=== PATIENT | female | born 1960 | race Caucasian/White ===

== ENCOUNTER → 2016-12-28 | Outpatient (CLI) | payer BC ==
--- NOTE | 2016-12-28 17:50 | US ---
EXAMINATION TYPE: US kidneys/renal and bladder DATE OF EXAM: 12/28/2016 COMPARISON: NONE CLINICAL HISTORY: Pelvic Pain R10.2, Renal Cysts N28.1. History of renal cyst EXAM MEASUREMENTS: Right Kidney: 10.6 x 5.7 x 3.9 cm Left Kidney: 10.9 x 5.0 x 4.5 cm Post Void Residual Volume: 12.9 mL Right Kidney: cystic area mid = 2.5 x 2.5 x 2.5cm Left Kidney: no evidence of hydronephrosis or mass Bladder: wnl Bilateral Jets seen: yes Normal Post Void Residual: yes There is no evidence for hydronephrosis at this point in time. No nephrolithiasis is seen. No william s are identified. The urinary bladder is anechoic. Bilateral ureteral jets are seen. IMPRESSION: There is a 2.5 cm exophytic cortical cyst on the right kidney. No sign of solid renal mass. Satisfact ory bladder emptying.
--- NOTE | 2016-12-28 18:00 | US ---
EXAMINATION TYPE: US pelvis complete transvag DATE OF EXAM: 12/28/2016 COMPARISON: Previous study dated 12/28/2016 CLINICAL HISTORY: Pelvic Pain R10.2, Renal Cysts N28.1. Mid/ left pelvic and perineal pain, partial h ysterectomy 2004 TECHNIQUE: Transvaginal (TV) and Transabdominal (TA) Date of LMP: unknown EXAM MEASUREMENTS: Uterus: Surgically absent Endometrial Stripe: Surgically absent Right Ovary: unable to visualize Left Ovary: unable to visualize 1. Uterus: Surgically absent, vaginal cuff = 0.8cm 2. Endometrium: Surgically absent 3. Right Ovary: unable to visualize 4. Left Ovary: unable to visualize 5. Bilateral Adnexa: complex anechoic area midline/left adnexa = 3.1 x 2.4 x 2.2cm ?etiology IMPRESSION: LESION TALKED ABOUT INVOLVING THE LEFT ADNEXA IS NOT WELL DEMONSTRATED. IN LIGHT OF PATIENT'S SYMPTOM S, A CT SCAN OF THE PELVIS MAY WORTHWHILE OR MRI.
== END | disposition home or self-care (01) ==
LOC: RADUSWWP 16:03
PROVIDERS: ATTEND Family Medicine
DX: N28.1 Cyst of kidney, acquired (principal); N83.8 Other noninflammatory disorders of ovary, fallopian tube and broad ligament
CPT/HCPCS: 76770; 76830; 76856

== ENCOUNTER → 2017-01-22 | Outpatient (CLI) | payer BC ==
[2017-01-22 15:04] LABS: Blood Urea Nitrogen 14 mg/dL (7-17); Non-African American GFR(MDRD) >60 (>60 ml/min/1.73 sqM)
--- NOTE | 2017-01-22 16:24 | CT ---
EXAMINATION TYPE: CT abdomen pelvis w con DATE OF EXAM: 01/22/2017 COMPARISON: NONE prior report from 10/14/2003 is reviewed. INDICATION: Right renal cyst and pelvic pain. DLP: 1632.00 mGycm, Automated exposure control for dose reduction was used. CONTRAST: 100 mL of Omnipaque 300. Study performed with Oral Contrast TECHNIQUE: Axial images were obtained from above the diaphragm to the pubic rami in the axial plane a t 5 mm thick sections. Reconstructed images are reviewed on the computer in the coronal plane. FINDINGS: Limited CT sections are obtained the lung bases. The lung bases are clear. CT ABDOMEN: Liver: There is mild fatty infiltration liver. No discrete masses or cysts are evident. Spleen: Normal Pancreas: Normal Adrenal glands: The adrenal glands are normal. Gallbladder: Surgically absent Kidneys: No masses are evident. No hydronephrosis is present. There is a 1.8 cm mid lateral right r enal cyst measuring 12 Hounsfield units. This was present and stable in size from the reported 2003. Delayed images were obtained through the kidneys, which remain unremarkable. Aorta: Normal . Some vascular calcification is within the aorta mccallum. Inferior vena cava: Normal. CT PELVIS: Loops of bowel within the abdomen and pelvis are normal. There are loops of bowel which are incom pletely distended or lack oral contrast limiting their evaluation. Diverticular changes are through t he sigmoid colon without acute diverticulitis. Appendix: Normal as visualized. Urinary bladder: Normal. Genitourinary structures: 1.4 cm left ovarian cyst is present. Uterus is not identified. Right ovary is not identified. Left ovary could have some residual ovarian tissue present. Osseous structures: No suspicious osseous abnormality is evident. IMPRESSIONS: 1. Residual ovarian tissue in the left adnexa with a 1.4 cm cyst. 2. Right renal cyst. 3. Mild fatty infiltration of the liver
== END | disposition home or self-care (01) ==
LOC: RADCTMAIN 14:21
PROVIDERS: ATTEND Family Medicine
DX: N28.1 Cyst of kidney, acquired (principal); K76.0 Fatty (change of) liver, not elsewhere classified; N83.8 Other noninflammatory disorders of ovary, fallopian tube and broad ligament
CPT/HCPCS: 82565; 84520; 74177; 36415; Q9967

== ENCOUNTER → 2018-12-24 | Outpatient (CLI) | payer BC ==
--- NOTE | 2018-12-24 13:45 | MM ---
Reason for exam: screening (asymptomatic). Last mammogram was performed 2 years and 6 months ago. History: Patient is postmenopausal. Family history of breast cancer in maternal aunt. Physical Findings: A clinical breast exam by your physician is recommended on an annual basis and results should be correlated with mammographic findings. MG Screening Mammo w CAD Bilateral CC and MLO view(s) were taken. Prior study comparison: June 19, 2016, bilateral MG screening mammo w CAD. November 14, 2013, [facility] DIGITAL BILATERAL MAMMOGRAM w/CAD. The breast tissue is heterogeneously dense. This may lower the sensitivity of mammography. No suspicious abnormality. No significant changes when compared with prior studies. ASSESSMENT: Negative, BI-RAD 1 RECOMMENDATION: Routine screening mammogram of both breasts in 1 year.
== END ==
LOC: RADMAMWWP 06:52
PROVIDERS: ATTEND Family Medicine
DX: Z12.31 Encounter for screening mammogram for malignant neoplasm of breast (principal)
CPT/HCPCS: 77067

== ENCOUNTER 2019-01-29 07:33 | Day surgery (SDC) | payer BC ==
[2019-01-28 10:05] VITALS: BMI 33.7
[~2019-01-29 07:33] MED LIST: LACTATED RINGERS 1,000 ML IV SCH; LIDOCAINE 1% 20 ML VIAL (10MG/ML) FOR IV START INTRADERMA PRN; MOXIFLOXACIN HCL 0.5% DROPS 3 ML BTL OP ONE; TETRACAINE 0.5% OPHTH (PF) DROPS 4 ML BTL OP ONE; TIMOLOL 0.5% OPHTH DROPS 5 ML BTL OP ONE
[2019-01-29] MEDS: CYCLOPENTOLATE 1% OPHTH SOLN 2 ML BTL OP ONE ×3 (08:00→08:12)
[2019-01-29] MEDS: PHENYLEPHRINE 2.5% OPHTH DRP 2ML OP NR ×3 (08:02→08:17)
[2019-01-29 08:15] VITALS: TEMP 97.7
[2019-01-29 08:15] LABS: Glucose,Whole Blood 118 mg/dL (75-99)
[2019-01-29] MEDS ORDERED: HYALURONATE SODIUM INTRAOCULAR 1 EACH SYRINGE (12MG/ML) INTRAOCULA ONE (08:48)
[2019-01-29] MEDS ORDERED: BALANCED SALT IRRIG SOLN COMB2 15 ML IRRIG.SOLN IRRIGATION ONE (08:49)
[2019-01-29] MEDS ORDERED: LIDOCAINE 1% (PF) 10MG/ML VIAL MISCELLANE ONE (08:49)
[2019-01-29] MEDS ORDERED: DUOVISC KIT (GREEN BOX) INTRAOCULA ONE (08:50)
[2019-01-29] MEDS ORDERED: EPINEPHrine (PF) 0.3 ML in BALANCED SALT IRRIG SOLN COMB2 500 ML IRRIGATION ONE (08:51)
[2019-01-29] MEDS ORDERED: fentaNYL (PF) 50 MCG/ML 2 ML AMP ONE (08:51)
[2019-01-29] MEDS ORDERED: MIDAZOLAM 2 MG/2 ML VIAL ONE (08:51)
[2019-01-29] MEDS ORDERED: TRYPAN BLUE 0.06% SYRINGE 0.5 ML SYRINGE INTRAOCULA ONE (08:59)
--- NOTE | 2019-01-29 09:18 | P.OP ---
Date of Procedure: 01/29/19 Preoperative Diagnosis: NS & POAG moderate Postoperative Diagnosis: same Procedure(s) Performed: PIOL & iStent implantantion Implants: [id number] & [id number] Anesthesia: MAC Surgeon: Long Camara Estimated Blood Loss (ml): 2 Pathology: none sent Condition: stable Disposition: same day Indications for Procedure: blurry vision and glaucoma Operative Findings: no complications
[2019-01-29 09:47] VITALS: BP 120/87; PULSE 76; RESP 18
--- NOTE | 2019-01-29 19:32 | OP ---
OPERATIVE REPORT DATE OF SURGERY: January 29, 2019. PROCEDURE PERFORMED: Phacoemulsification of cataract and intraocular lens implant of the right eye with eye stent implantation, right eye. PREOPERATIVE DIAGNOSES: Nuclear sclerosis, primary open-angle glaucoma mild stage, intermittent angle closure. POSTOPERATIVE DIAGNOSES: Nuclear sclerosis, primary open-angle glaucoma mild stage, intermittent angle closure. SURGEON: Dr. Long Camara. ANESTHESIA: Topical. ESTIMATED BLOOD LOSS: None. SPECIMEN: Taken none. NARRATIVE: After obtaining the appropriate consent, the patient was brought to the operating room. There she was placed on cardiac monitoring, prepped and draped in the usual sterile manner. She was approached from her right temporal side and at the 11 o'clock position, an MVR blade was used to create a paracentesis port. Through this opening, 1% Xylocaine MPF 50/50 mix with balanced salt solution was injected into the anterior chamber. This was followed by staining the anterior chamber with Trypan blue for approximately 1 minute. Trypan blue was then irrigated away and replaced with Viscoat. At the 9 o'clock position, a 2.5 mm keratome was used to create a self-sealing corneal flap incision. The patient was then asked to rotate her head approximately 45 degrees to her left. A goneo prism was placed on the eye after a small amount of Viscoat which was used as a coupling agent, was placed on the cornea. Identification of the trabecular meshwork was easily made due to the triptan staining and a [employer] model GTS 100 L eye stent device was passed across the anterior chamber and implanted into the trabecular meshwork without difficulty. The patient was then returned to the normal supine position and a cystotome was used to begin a continuous tear capsulorrhexis which was completed using the Utrata forceps. Hydrodissection and hydrodelineation of the lens was accomplished with balanced salt solution. Phacoemulsification of the lens utilizing phaco chop was accomplished in 9.01 seconds at 13% power. Additional Xylocaine MPF was instilled in the anterior chamber. This was followed by removal of the remaining cortex under irrigation and aspiration along with careful polishing of the posterior capsule in capsule vacuum mode. Additional Provisc was then used to stabilize the capsular bag and a [employer] PCB 0 0 21.50 diopter posterior chamber intraocular lens was then injected into the capsular bag without difficulty. The remaining viscoelastic from in and around the intra-ocular lens was removed under irrigation aspiration as well as removal of the viscoelastic from the anterior chamber. The eye was then brought to normal intraocular pressure through the paracentesis port with balanced salt solution. Both temporal incision as well as paracentesis were confirmed watertight. She then received 2 drops of 0.5% timolol followed by 2 drops of moxifloxacin, was then lightly patched and shielded in the usual manner. There were no complications from the procedure. She tolerated the procedure well, was returned to outpatient recovery in good condition. MMODL / IJN: [id number] /
== END 2019-01-29 10:10 | disposition home or self-care (01) ==
LOC: OR 07:33
PROVIDERS: ATTEND Ophthalmology
DX: H25.13 Age-related nuclear cataract, bilateral (principal); E11.36 Type 2 diabetes mellitus with diabetic cataract; H40.1132 Primary open-angle glaucoma, bilateral, moderate stage; H16.223 Keratoconjunctivitis sicca, not specified as Sjogren's, bilateral; H40.033 Anatomical narrow angle, bilateral; H35.413 Lattice degeneration of retina, bilateral; H47.393 Other disorders of optic disc, bilateral; H00.023 Hordeolum internum right eye, unspecified eyelid; G43.109 Migraine with aura, not intractable, without status migrainosus; H43.393 Other vitreous opacities, bilateral; H00.026 Hordeolum internum left eye, unspecified eyelid; H52.4 Presbyopia; H52.13 Myopia, bilateral; K21.9 Gastro-esophageal reflux disease without esophagitis; F32.9 Major depressive disorder, single episode, unspecified; I10 Essential (primary) hypertension; E78.5 Hyperlipidemia, unspecified; J34.9 Unspecified disorder of nose and nasal sinuses; D49.511 Neoplasm of unspecified behavior of right kidney; Z79.84 Long term (current) use of oral hypoglycemic drugs; Z79.899 Other long term (current) drug therapy; Z88.0 Allergy status to penicillin; Z88.8 Allergy status to other drugs, medicaments and biological substances; Z91.09 Other allergy status, other than to drugs and biological substances; Z90.49 Acquired absence of other specified parts of digestive tract; Z90.710 Acquired absence of both cervix and uterus; Z98.51 Tubal ligation status; Z83.511 Family history of glaucoma; Z83.518 Family history of other specified eye disorder; Z80.9 Family history of malignant neoplasm, unspecified; Z83.3 Family history of diabetes mellitus; Z82.49 Family history of ischemic heart disease and other diseases of the circulatory system
CPT/HCPCS: 0191T; 66984

== ENCOUNTER 2019-02-12 07:29 | Day surgery (SDC) | payer BC ==
[2019-02-10 13:44] VITALS: BMI 33.7
[~2019-02-12 07:29] MED LIST changes: -MOXIFLOXACIN HCL 0.5% DROPS 3 ML BTL OP ONE; -TIMOLOL 0.5% OPHTH DROPS 5 ML BTL OP ONE
[2019-02-12] MEDS: CYCLOPENTOLATE 1% OPHTH SOLN 2 ML BTL OP ONE ×3 (07:45→08:05)
[2019-02-12] MEDS: PHENYLEPHRINE 2.5% OPHTH DRP 2ML OP NR ×3 (07:50→08:10)
[2019-02-12 08:02] VITALS: TEMP 97.2
[2019-02-12] MEDS ORDERED: fentaNYL (PF) 50 MCG/ML 2 ML AMP ONE (08:12)
[2019-02-12] MEDS ORDERED: MIDAZOLAM 2 MG/2 ML VIAL ONE (08:12)
[2019-02-12] MEDS ORDERED: DUOVISC KIT (GREEN BOX) INTRAOCULA ONE ×2 (08:13→08:27)
[2019-02-12] MEDS ORDERED: BALANCED SALT IRRIG SOLN COMB2 15 ML IRRIG.SOLN IRRIGATION ONE ×2 (08:13→08:27)
[2019-02-12] MEDS: TIMOLOL 0.5% OPHTH DROPS 5 ML BTL OP ONE ×2 (08:13→08:29)
[2019-02-12] MEDS ORDERED: CITRIC ACID-SODIUM CITRATE 15 ML CUP PO PRN (08:13)
[2019-02-12] MEDS: MOXIFLOXACIN HCL 0.5% DROPS 3 ML BTL OP ONE ×2 (08:13→08:29)
[2019-02-12] MEDS ORDERED: LIDOCAINE 1% (PF) 10MG/ML VIAL SQ ONE ×2 (08:13→08:29)
[2019-02-12 08:14] LABS: Glucose,Whole Blood 119 mg/dL (75-99)
[2019-02-12] MEDS ORDERED: EPINEPHrine (PF) 0.3 ML in BALANCED SALT IRRIG SOLN COMB2 500 ML IRRIGATION ONE ×4 (08:20)
--- NOTE | 2019-02-12 08:47 | P.OP ---
Date of Procedure: 02/12/19 Preoperative Diagnosis: NS & mild stg POAG Postoperative Diagnosis: same Procedure(s) Performed: PIOL & iStent Implants: [id number] 20.50 & [id number] Anesthesia: MAC Surgeon: Long Camara Estimated Blood Loss (ml): 1 Pathology: none sent Condition: stable Disposition: same day Indications for Procedure: blurring vision and glaucoma Operative Findings: no complications
[2019-02-12] MEDS ORDERED: FAMOTIDINE 20 MG/2 ML VIAL IV SCH (09:00)
[2019-02-12 09:13] VITALS: RESP 16
[2019-02-12 09:19] VITALS: BP 122/76; PULSE 71
--- NOTE | 2019-02-12 18:10 | OP ---
OPERATIVE REPORT DATE OF SURGERY: February 12, 2019. PROCEDURE PERFORMED: Phacoemulsification of cataract and intraocular lens implant of the left eye with eye stent implantation, left eye. 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 SURGEON: Dr. Long Camara. ANESTHESIA: Topical. ESTIMATED BLOOD LOSS: Is none. SPECIMEN: Taken none. NARRATIVE: After obtaining the appropriate consent, the patient was brought to the operating room. There she was placed under cardiac monitoring and prepped and draped in the usual sterile manner. She was approached from her left temporal side and at the 5 o'clock position an MVR blade was used to create a paracentesis port. Through this opening 1% Xylocaine MPF 50/50 mix of balanced salt solution was injected into the anterior chamber. This was followed then by a trypan blue which was left in place for 1 minute. This was irrigated away with balanced salt solution and the anterior chamber was then stabilized with Viscoat. At the 3 o'clock position, a 2.5 mm keratome was used to create a self-sealing corneal flap incision. A small amount of Viscoat was placed on the patient's eye. The patient was asked to rotate her head to her right approximately 45 degrees and maintain gaze in that general direction. A gonio prism was placed on the patient's eye and examination of the trabecular meshwork was made. The Trypan blue had well stained the membrane itself. A [employer] model GTS 100 mL stent was passed across the anterior chamber and implanted into the trabecular meshwork on the nasal side. The patient was then returned to the normal supine position. A cystotome was used to begin a continuous tear capsulorrhexis which was then completed using the Utrata forceps. Hydrodissection and hydrodelineation of the lens were accomplished with balanced salt solution. Phacoemulsification of the lens utilizing phaco chop was accomplished in 3.36 seconds at 6% power. Additional Xylocaine MPF was instilled into the anterior chamber. This was followed by removal of the remaining cortex under irrigation/aspiration as well as careful polishing of the posterior capsule in the capsule vacuum mode. Provisc was then used to stabilize the capsular bag and a [employer] PCB 0 0 20.5 diopter posterior chamber intraocular lens was then placed into the capsular bag without difficulty. The remaining viscoelastic was removed from in and around the intra-ocular lens as well as the anterior chamber. The eye was then brought to normal intraocular pressure through the paracentesis port and the wounds were confirmed watertight. She then received 2 drops of 0.5% timolol followed by 2 drops of moxifloxacin, was then lightly patched and shielded in the usual manner. There were no complications from the procedure. She tolerated the procedure well, was returned to outpatient recovery in good condition. MMCODY / TATYANA: [id number] /
== END 2019-02-12 09:24 | disposition home or self-care (01) ==
LOC: OR 07:29
PROVIDERS: ATTEND Ophthalmology
DX: H25.12 Age-related nuclear cataract, left eye (principal); H40.1132 Primary open-angle glaucoma, bilateral, moderate stage; H40.033 Anatomical narrow angle, bilateral; H52.13 Myopia, bilateral; H52.4 Presbyopia; H16.223 Keratoconjunctivitis sicca, not specified as Sjogren's, bilateral; H35.413 Lattice degeneration of retina, bilateral; H00.023 Hordeolum internum right eye, unspecified eyelid; H00.026 Hordeolum internum left eye, unspecified eyelid; Z96.1 Presence of intraocular lens; H47.393 Other disorders of optic disc, bilateral; I10 Essential (primary) hypertension; E78.5 Hyperlipidemia, unspecified; J45.909 Unspecified asthma, uncomplicated; E11.9 Type 2 diabetes mellitus without complications; D86.9 Sarcoidosis, unspecified; K21.9 Gastro-esophageal reflux disease without esophagitis; F32.9 Major depressive disorder, single episode, unspecified; Z85.528 Personal history of other malignant neoplasm of kidney; Z90.49 Acquired absence of other specified parts of digestive tract; Z90.710 Acquired absence of both cervix and uterus; Z98.51 Tubal ligation status; Z83.511 Family history of glaucoma; Z84.89 Family history of other specified conditions; Z83.3 Family history of diabetes mellitus; Z82.49 Family history of ischemic heart disease and other diseases of the circulatory system; Z79.84 Long term (current) use of oral hypoglycemic drugs; Z79.899 Other long term (current) drug therapy; Z88.0 Allergy status to penicillin; Z88.8 Allergy status to other drugs, medicaments and biological substances
CPT/HCPCS: 66984; 66183; C1780; C1783; J2250; J0171; J3010; J2001

== ENCOUNTER → 2020-08-09 | Outpatient (CLI) | payer BC ==
--- NOTE | 2020-08-10 11:26 | MM ---
Reason for exam: screening (asymptomatic). Last mammogram was performed 1 year and 7 months ago. History: Patient is postmenopausal. Family history of breast cancer in maternal aunt. Took hormonal contraceptives for 4 years. Physical Findings: A clinical breast exam by your physician is recommended on an annual basis and results should be correlated with mammographic findings. MG Screening Mammo w CAD Bilateral CC and MLO view(s) were taken. Prior study comparison: December 24, 2018, bilateral MG screening mammo w CAD. June 19, 2016, bilateral MG screening mammo w CAD. There are scattered fibroglandular densities. No significant changes when compared with prior studies. ASSESSMENT: Benign, BI-RAD 2 RECOMMENDATION: Routine screening mammogram of both breasts in 1 year.
== END | disposition home or self-care (01) ==
LOC: RADMAMWWP 16:27
PROVIDERS: ATTEND Family Medicine
DX: Z12.31 Encounter for screening mammogram for malignant neoplasm of breast (principal)
CPT/HCPCS: 77067

== ENCOUNTER → 2023-09-25 | Outpatient (CLI) | payer BC ==
--- NOTE | 2023-09-26 18:36 | MM ---
Reason for Exam: Screening (asymptomatic). Last mammogram was performed 1 year(s) and 1 month(s) ago. Patient History: Menarche at age 14. First Full-Term at age 16. Hysterectomy at age 45. Postmenopausal. Patient used Hormonal Contraceptives for 4 years. Maternal aunt had breast cancer, age 60. Risk Values: Alie 5 year model risk: 1.0%. NCI Lifetime model risk: 4.4%. Prior Study Comparison: 12/24/2018 Bilateral Screening Mammogram, [facility]. 08/09/2020 Bilateral Screening Mammogram, [facility]. 09/19/2022 Bilateral MG 3D screening mammo w/cad, [facility]. Tissue Density: There are scattered areas of fibroglandular density. Findings: Analyzed By CAD. There is no suspicious group of microcalcifications or new suspicious mass in either breast. Overall Assessment: Negative, BI-RAD 1 Management: Screening Mammogram of both breasts in 1 year. . Patient should continue monthly self-breast exams. A clinical breast exam by your physician is recommended on an annual basis. This exam should not preclude additional follow-up of suspicious palpable abnormalities. Note on Alie scores and lifetime risk: 1. A Alie score greater than 3% is considered moderate risk. If this is the case, consider specialist referral to assess eligibility for a risk reducing agent. 2. If overall lifetime risk for the development of breast cancer is 20% or higher, the patient may qualify for future screening with alternating mammogram and breast MRI. Electronically signed and approved by: Russ Salguero M.D. Radiologist
== END | disposition home or self-care (01) ==
LOC: RADMAMWWP 12:53
PROVIDERS: ATTEND Family Medicine
DX: Z12.31 Encounter for screening mammogram for malignant neoplasm of breast (principal); Z80.3 Family history of malignant neoplasm of breast; Z78.0 Asymptomatic menopausal state
CPT/HCPCS: 77063; 77067